=== PATIENT | male | born 1995 | race Caucasian/White ===

== ENCOUNTER 2017-01-16 13:13 | Observation (INO) | payer BC ==
[2017-01-16] MEDS ORDERED: ONDANSETRON 4 MG/2 ML VIAL ONE (13:22)
[2017-01-16] MEDS ORDERED: ONDANSETRON 4 MG/2 ML VIAL IVP ONE ×3 (13:25→16:25)
[2017-01-16] MEDS ORDERED: NS 1,000 ML IV ONE ×3 (13:25→16:23)
[2017-01-16 13:59] LABS: % IMMATURE GRANULYOCYTES 0.3 % (0.0-1.1); ABSOLUTE IMMATURE GRANULOCYTES 0.05 10^3/uL (0.00-0.10); ADD DIFF? NO; ADD MORPH? NO; ADD SCAN? NO; ATYPICAL LYMPHOCYTE FLAG 0 (0-99); FRAGMENT RBC FLAG 0 (0-99); HEMATOCRIT 50.4 % (40.0-51.0); HEMOGLOBIN 17.6 g/dL (13.7-17.5); LEFT SHIFT FLG 0 (0-99); LIPEMIA HEMOLYSIS FLAG 90 (0-99); MEAN CELL HEMOGLOBIN 32.4 pg (27.9-34.1); MEAN CELL HEMOGLOBIN CONCENTR. 34.9 g/dL (32.4-36.7); MEAN CELL VOLUME 92.6 fL (81.5-99.8); MEAN PLATELET VOLUME 10.1 fL (8.7-11.7); PLATELET CLUMPS FLAG 10 (0-99); PLATELET COUNT 246 10^3/uL (150-400); RED BLOOD CELL COUNT 5.44 10^6/uL (4.40-6.38); RED CELL DISTRIBUTION WIDTH 12.5 % (11.5-15.2)
[2017-01-16] MEDS ORDERED: PROMETHAZINE HCL 25 MG/ML INJ IVP ONE (14:01)
[2017-01-16 14:07] LABS: ALANINE AMINOTRANSFERASE 35 IU/L (21-72); ALBUMIN 4.9 g/dL (3.5-5.0); ALKALINE PHOSPHATASE 87 IU/L (38-126); ANION GAP 16 mEq/L (8-16); ASPARTATE AMINOTRANSFERASE 24 IU/L (17-59); BILIRUBIN,TOTAL 0.8 mg/dL (0.1-1.4); BILIRUBIN-CONJUGATED 0.4 mg/dL (0.0-0.5); BILIRUBIN-UNCONJUGATED 0.4 mg/dL (0.0-1.1); CALCIUM 10.3 mg/dL (8.5-10.4); CARBON DIOXIDE 26 mEq/l (22-31); CHLORIDE 102 mEq/L (97-110); GLOMERULAR FILTRATION RATE > 60; GLUCOSE 123 mg/dL (70-100); POTASSIUM 4.4 mEq/L (3.5-5.2); SODIUM 144 mEq/L (134-144); TOTAL PROTEIN 7.7 g/dL (6.3-8.2)
--- NOTE | 2017-01-16 14:11 | EDPHY ---
General Narrative: CHIEF COMPLAINT: Nausea vomiting diarrhea HISTORY OF PRESENT ILLNESS: Patient complains of sudden onset of nausea, vomiting diarrhea. This started when he awoke this morning at 7:30 a.m.. He feels as though he has food poisoning. He reports eating a meal 730 last night that was repaired outside the home. He said he felt well when he went to bed but awoke abruptly with the above. He has also had diarrhea. He thinks he has had 25 episode of vomiting and now just dry heaving. He has epigastric discomfort with this. He has no generalized abdominal pain. No fever. No sweating. No chest or back pain. No shortness of breath. No recent travel or camping. No stagnant water ingestion. No known sick contacts. No other associated complaints or modifying factors. REVIEW OF SYSTEMS: Ten systems reviewed and are negative unless otherwise noted in the HPI PCP: No General practitioner. Sees a psychiatrist Dr. Cancino SPECIALISTS: Psychiatrist Dr. Cancino PAST MEDICAL HISTORY: PTSD, anxiety PAST SURGICAL HISTORY: None SOCIAL HISTORY: Nonsmoker. Occasional alcohol. 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 Airway is patent Neck: Normal inspection, supple, non-tender Respiratory: Lungs are clear to auscultation Cardiovascular: Regular rate and rhythm. No murmur Gastrointestinal: Abdomen is soft and nontender. No tympany. No rigidity. No guarding or rebound tenderness. Back: non-tender, no bony abnormalities Neurological: A&O, nonfocal, normal gait Skin: Warm and dry, no rash Extremities: Nontender, no pedal edema Psychiatric: Mood and affect normal DIFFERENTIAL DIAGNOSES: Including but not limited to gastroenteritis, enteritis, gastritis, food-borne illness, hepatitis MDM: 2:00 p.m. Nausea vomiting diarrhea that started abruptly this morning. Patient feels that he may have food poisoning. He is in no acute distress. Vital signs are stable. IV fluid infusing. Laboratory studies are pending. I have ordered another dose of Zofran and 1 dose of promethazine. Re-evaluate 2:15 p.m. CBC reveals leukocytosis, possibly due to demargination from vomiting. Chemistries unremarkable. Continue to monitor in re-evaluated after IV fluid and antiemetics. 3:15 p.m. Patient re-evaluated. He has received IV fluid and 2 rounds of antiemetic. No vomiting here. He is feeling thirsty and asking for water to drink. He is starting to improve. He does not feel resolved but does feel better. I have re -examined his abdomen. Abdomen remains soft with mild generalized pain. No guarding. No distention. He does have some mild right lower quadrant pain but no guarding, rebound or obturator sign. I offered a CT scan for further evaluation with the patient has declined. He would like to drink water and go home if he is able to tolerate this. 4:15 p.m. Patient re-evaluated. I was notified by the RN that she re-evaluated him and his heart rate had increased from time of arrival. This is despite 2 L IV fluid. I re-evaluated him and he continues to feel nauseated but not vomiting. Heart rate is 105 beats per minute. It was 75 beats per minute in triage. I have ordered 1 additional L IV fluid another dose of Zofran. Patient continues to decline the CT scan and would like to go home. 5:08 p.m. Patient re-evaluated. I rechecked his heart rate is now 98 beats per minute. He said he is feeling better. He has tolerated intake of crackers without vomiting. He wants to be discharged home at this time. We discussed going home with Zofran and promethazine. We discussed 24 hr recheck if no improvement or sooner for any worsening. He voices understanding of this and agrees to return if he has no improvement in the next 24 hr. At that time he would require further IV fluid. He is comfortable this plan and discharged home stable condition. SUPERVISION: Patient was independently examined, but I discussed the case with my secondary supervising physician . - Objective Vital Signs: Initial Vital Signs Temperature (C) 97.5 F 01/16/17 13:20 Heart Rate 72 01/16/17 13:20 Respiratory Rate 18 01/16/17 13:20 Blood Pressure 137/77 H 01/16/17 13:20 O2 Sat (%) 98 01/16/17 13:20 O2 Delivery Mode Room Air Allergies/Adverse Reactions: Penicillins Allergy (Verified 01/16/17 14:25) Home Medications: Medication Instructions Recorded Lamictal 01/16/17 Ondansetron Odt [Zofran Odt 4 mg 4 mg PO Q6 PRN #12 tab 01/16/17 (*)] Paxil 01/16/17 Promethazine HCl [Phenergan 25mg 25 mg PO Q8 PRN #12 tab 01/16/17 (*)] Wellbutrin Xl 01/16/17 Laboratory Results: Laboratory Results 01/16/17 13:30 01/16/17 13:30 01/16/17 01/16/17 13:30 13:30 WBC 17.16 10^3/uL H 10^3/uL (3.80-9.50) RBC 5.44 10^6/uL 10^6/uL (4.40-6.38) Hgb 17.6 g/dL H g/dL (13.7-17.5) Hct 50.4 % % (40.0-51.0) MCV 92.6 fL fL (81.5-99.8) MCH 32.4 pg pg (27.9-34.1) MCHC 34.9 g/dL g/dL (32.4-36.7) RDW 12.5 % % (11.5-15.2) Plt Count 246 10^3/uL 10^3/uL (150-400) MPV 10.1 fL fL (8.7-11.7) Neut % (Auto) 92.5 % H % (39.3-74.2) Lymph % (Auto) 2.0 % L % (15.0-45.0) Stephens % (Auto) 4.7 % % (4.5-13.0) Eos % (Auto) 0.3 % L % (0.6-7.6) Baso % (Auto) 0.2 % L % (0.3-1.7) Nucleat RBC Rel Count 0.0 % % (0.0-0.2) Absolute Neuts (auto) 15.87 10^3/uL H 10^3/uL (1.70-6.50) Absolute Lymphs (auto) 0.35 10^3/uL L 10^3/uL (1.00-3.00) Absolute Monos (auto) 0.80 10^3/uL 10^3/uL (0.30-0.80) Absolute Eos (auto) 0.05 10^3/uL 10^3/uL (0.03-0.40) Absolute Basos (auto) 0.04 10^3/uL 10^3/uL (0.02-0.10) Absolute Nucleated RBC 0.00 10^3/uL 10^3/uL (0-0.01) Immature Gran % 0.3 % % (0.0-1.1) Immature Gran # 0.05 10^3/uL 10^3/uL (0.00-0.10) Sodium 144 mEq/L mEq/L (134-144) Potassium 4.4 mEq/L mEq/L (3.5-5.2) Chloride 102 mEq/L mEq/L (97-110) Carbon Dioxide 26 mEq/l mEq/l (22-31) Anion Gap 16 mEq/L mEq/L (8-16) BUN 26 mg/dL H mg/dL (7-23) Creatinine 1.0 mg/dL mg/dL (0.7-1.3) Estimated GFR > 60 Glucose 123 mg/dL H mg/dL (70-100) Calcium 10.3 mg/dL mg/dL (8.5-10.4) Total Bilirubin 0.8 mg/dL mg/dL (0.1-1.4) Conjugated Bilirubin 0.4 mg/dL mg/dL (0.0-0.5) Unconjugated Bilirubin 0.4 mg/dL mg/dL (0.0-1.1) AST 24 IU/L IU/L (17-59) ALT 35 IU/L IU/L (21-72) Alkaline Phosphatase 87 IU/L IU/L (38-126) Total Protein 7.7 g/dL g/dL (6.3-8.2) Albumin 4.9 g/dL g/dL (3.5-5.0) Lipase 55 IU/L IU/L (23-300) Medications Given: Discontinued Medications Sodium Chloride (Ns) 1,000 mls @ 0 mls/hr IV ONCE ONE PRN Reason: Wide Open Stop: 01/16/17 13:26 Last Admin: 01/16/17 13:37 Dose: 1,000 mls Sodium Chloride (Ns) 1,000 mls @ 0 mls/hr IV ONCE ONE PRN Reason: Wide Open Stop: 01/16/17 13:41 Last Admin: 01/16/17 13:41 Dose: 1,000 mls Sodium Chloride (Ns) 1,000 mls @ 0 mls/hr IV ONCE ONE PRN Reason: Wide Open Stop: 01/16/17 16:24 Last Admin: 01/16/17 16:27 Dose: 1,000 mls Ondansetron HCl (Zofran) 4 mg IVP EDNOW ONE Stop: 01/16/17 13:26 Last Admin: 01/16/17 13:37 Dose: 4 mg Ondansetron HCl (Zofran) 4 mg IVP EDNOW ONE Stop: 01/16/17 14:02 Last Admin: 01/16/17 14:10 Dose: 4 mg Ondansetron HCl (Zofran) 4 mg IVP EDNOW ONE Stop: 01/16/17 16:26 Last Admin: 01/16/17 16:27 Dose: 4 mg Promethazine HCl (Phenergan) 12.5 mg IVP ONCE ONE Stop: 01/16/17 14:02 Last Admin: 01/16/17 14:10 Dose: 12.5 mg Departure - Departure Disposition: Home, Routine, Self-Care Clinical Impression: Acute vomiting, Acute diarrhea Condition: Good Instructions: Gastroenteritis (ED), Acute Nausea and Vomiting (ED) Additional Instructions: 1. Increase intake slowly as tolerated 2. Nausea medications as discussed as needed 3. Contact her primary care physician or the on-call primary care physician provided 4. ED precautions for any worsening symptoms, right lower quadrant abdominal pain, fever Referrals: Katja Lange MD [Medical Doctor] - As per Instructions Stand Alone Forms: Work Excuse Prescriptions: Ondansetron Odt [Zofran Odt 4 mg (*)] 4 mg PO Q6 PRN #12 tab PRN Reason: Nausea/Vomiting, Use 1st Promethazine HCl [Phenergan 25mg (*)] 25 mg PO Q8 PRN #12 tab PRN Reason: Nausea/Vomiting, Use 1st
[2017-01-16] MEDS ORDERED: ONDANSETRON 4 MG/2 ML VIAL IVP PRN (17:42)
[2017-01-16] MEDS ORDERED: ONDANSETRON DISINTEGRATING 4 MG TAB PO PRN (17:42)
[2017-01-16] MEDS ORDERED: ACETAMINOPHEN 325 MG TAB PO PRN (17:42)
--- NOTE | 2017-01-16 19:44 | GHP ---
[f rep st] HISTORY AND PHYSICAL DATE OF ADMISSION: 01/16/2017 CHIEF COMPLAINT: Intractable nausea, vomiting, and diarrhea. HISTORY OF PRESENT ILLNESS: A 21-year-old male with history of anxiety and PTSD , presenting with intractable nausea, vomiting, and diarrhea that started abruptly this morning. He says he was in a normal state of health yesterday without fevers, chills, or sweats. He ate rotisserie chicken yesterday afternoon and went out to dinner and had tomato soup and a grilled cheese. He thinks he had food poisoning. c/o chills today and abdominal pain secondary to retching. No cough, shortness of breath, or dysuria. No myalgias. No neck stiffness. No headaches. He was treated in the emergency department with antiemetics; however, he continued to have persistent nausea and vomiting. REVIEW OF SYSTEMS: I completed a 10-point review of systems and is negative except as noted in HPI. PAST MEDICAL HISTORY: Anxiety and PTSD. PAST SURGICAL HISTORY: None. FAMILY HISTORY: No cancers. SOCIAL HISTORY: He lives here in [place]. He works as a fly freshman in a restaurant. Occasional marijuana. A recovering heroin user, last 2 years ago. No alcohol or tobacco. ALLERGIES: Penicillin. HOME MEDICATIONS: Wellbutrin, Paxil, Lamictal, promethazine, and Zofran, as needed. PHYSICAL EXAMINATION: VITAL SIGNS: Temperature 36.9, blood pressure 152/74, heart rate 97-100, and 98% on room air. GENERAL: Mildly diaphoretic, lying in bed in no acute distress. HEENT: PERRLA. Mildly dry mucous membranes. CARDIOVASCULAR: Regular rate and rhythm. No murmurs, gallops, or rubs. LUNGS : Clear to auscultation bilaterally. ABDOMEN: Soft, nondistended. Minimal palpation. No rebound, guarding. Positive bowel sounds. : No suprapubic tenderness. MUSCULOSKELETAL: 5/5 upper and lower extremity strength. NEUROLOGIC: Cranial nerves 2-12 intact. PSYCHIATRIC: Alert and oriented x3. LABORATORY DATA: WBC is 17.6, hemoglobin 17, hematocrit 50, platelets 246. Sodium is 144, potassium 4.4, chloride 102, anion gap 16, BUN 26, creatinine 1, glucose 123. LFTs are within normal. Lipase is 55. ASSESSMENT AND PLAN: 1. Intractable nausea, vomiting, and diarrhea: Suspect this is food-borne illness, given abrupt onset. He was in his normal state of health today. Abdominal pain developed after excessive retching. GI panel pending.. Supportive care with intravenous fluids and antiemetics. Clear diet, advance as tolerated. 2. Leukocytosis: Likely secondary to stress, inflammation, and possible gastroenteritis. He denies other infectious symptoms. We will repeat in the morning after hydration. 3. Diet: Clears. Advance as tolerated. 4. DVT prophylaxis. Low risk. DISPOSITION: The patient warrants observation and admission, given persistent nausea and vomiting, warranting intravenous fluids and antiemetics. /[id number]/MODL MTDD
[2017-01-16] MEDS: LR 1,000 ML IV SCH (20:20)
[2017-01-17 05:56] LABS: HEMATOCRIT 42.4 % (40.0-51.0); HEMOGLOBIN 15.3 g/dL (13.7-17.5); MEAN CELL HEMOGLOBIN 33.3 pg (27.9-34.1); MEAN CELL HEMOGLOBIN CONCENTR. 36.1 g/dL (32.4-36.7); MEAN CELL VOLUME 92.4 fL (81.5-99.8); RED BLOOD CELL COUNT 4.59 10^6/uL (4.40-6.38); RED CELL DISTRIBUTION WIDTH 12.6 % (11.5-15.2)
[2017-01-17 06:13] LABS: ANION GAP 10 mEq/L (8-16); CALCIUM 8.4 mg/dL (8.5-10.4); CARBON DIOXIDE 25 mEq/l (22-31); CHLORIDE 104 mEq/L (97-110); CREATININE 0.9 mg/dL (0.7-1.3); GLOMERULAR FILTRATION RATE > 60; GLUCOSE 82 mg/dL (70-100); POTASSIUM 3.6 mEq/L (3.5-5.2); SODIUM 139 mEq/L (134-144)
[2017-01-17] MEDS: LR 1,000 ML IV SCH (06:37)
[2017-01-17] MEDS ORDERED: PARoxetine HCL 10 MG TAB PO SCH (09:00)
[2017-01-17] MEDS ORDERED: buPROPion 75 MG TAB PO SCH (09:00)
[2017-01-17 11:46] VITALS: BP 143/78; PULSE 70; RESP 18; TEMP 97.8; O2SAT 95
[2017-01-17] MEDS ORDERED: lamoTRIgine 100 MG TAB PO SCH (12:00)
[2017-01-17] MEDS ORDERED: NON-FORMULARY NEW DRUG (Gabapentin [Gabapentin] 600 MG) PO SCH (12:00)
[2017-01-17] MEDS ORDERED: clonazePAM 0.5 MG TAB PO PRN ×2 (12:00→17:00)
--- NOTE | 2017-01-17 12:14 | HOSPPROG ---
Hospitalist Progress Note Assessment/Plan: patient is an 21 y/o who presented to the ER with intractable nausea, vomiting and diarrhea. Today is my first encounter with the patient, chart reviewed. *intractable nausea and vomiting w diarrhea resolved tolerating cl liquids *Leukocytosis resolved *anxiety w PTSD has a very supportive psychiatrist he sees hospitals cause high anxiety for Alejandro/ would like to leave soon *Plan: dc home Subjective: alejandro has no c/o abdominal pain-says he ate a popsicle. The hospital stay is making him very anxious. Objective: Vital Signs Temp Pulse Resp BP Pulse Ox 36.6 C 70 18 143/78 H 95 01/17/17 11:46 01/17/17 11:46 01/17/17 11:46 01/17/17 11:46 01/17/17 11:46 Laboratory Results 01/17/17 05:10 01/17/17 05:30 01/16/17 01/17/17 01/18/17 05:59 05:59 05:59 Intake Total 4350 Output Total 700 Balance 3650 - Physical Exam Constitutional: appears nourished, not in pain Eyes: PERRL Ears, Nose, Mouth, Throat: hearing normal Cardiovascular: regular rate and rhythym Respiratory: no respiratory distress Gastrointestinal: normoactive bowel sounds, no palpable masses Skin: warm Musculoskeletal: full muscle strength Neurologic: AAOx3 Psychiatric: anxious ICD10 Worksheet Patient Problems: Problems Problem Status Onset Acute diarrhea Acute Acute vomiting Acute
--- NOTE | 2017-01-17 12:47 | GDS ---
[f rep st] DISCHARGE SUMMARY DISCHARGE DIAGNOSES: 1. Intractable nausea, vomiting, and diarrhea. 2. Leukocytosis. 3. Anxiety with posttraumatic stress disorder. HISTORY OF PRESENT ILLNESS: Briefly, the patient is a 21-year-old male with a history of anxiety, PTSD. He presented the emergency room with intractable nausea, vomiting, and diarrhea, that abruptly started. He describes this occurring after he ate rotisserie chicken in the afternoon. Went out to dinner , had tomato soup and a grilled cheese. He thinks he had food poisoning. Today , during my interview, he says he is tolerating clear liquids. He is anxious to get out of the hospital because the hospital is increasing his anxiety. He will be discharged home and further followed up with the psychiatrist. HOSPITAL COURSE: 1. Intractable nausea, vomiting, and diarrhea, resolved. He is tolerating clear liquids. 2. Leukocytosis, resolved. 3. Anxiety, PTSD. He has a supportive psychiatrist whom he sees. The hospital is causing increased stress. DISCHARGE CONDITION: Stable. Blood pressure is 143/78, heart rate is 70, respiratory rate is 18, O2 sats on room air 95%, temperature is 36.6 Celsius. MEDICATIONS AT DISCHARGE: Please see EMR. DISCHARGE INSTRUCTIONS: 1. Take in clear liquids and advance his diet slowly. 2. If he notices any worsening abdominal pain, return to the ER. 3. Further followup with his primary care provider. /[id number]/MODL MTDD
--- NOTE | 2017-01-17 15:30 | ASDISCHSUM ---
Discharge Information Plan Status:Home with No Needs Medically Cleared to Leave:01/16/2017 Discharge Date:01/17/2017 01:30 PM CM D/C Disposition: ADT D/C Disposition:Home, Routine, Self-Care Projected Discharge Date:01/17/2017 12:00 AM Transportation at D/C: Discharge Delay Reason: Follow-Up Date:01/17/2017 12:00 AM Discharge Slot: Final Diagnosis: Placement Information Patient Contact Information Contact Name:JOHNNIE Relationship:Sister Address: Work Phone: City: [facility] Phone: State/[place] Code: Email: Financial Information Financial Class:O and PPO Plans Primary Plan Desc: OUT OF STATE PPO Primary Plan Number:[id number] Secondary Plan Desc: Secondary Plan Number: Assessment Information Intervention Information
[2017-01-17] MEDS ORDERED: GABAPENTIN 300 MG CAP PO SCH (16:00)
[2017-01-17] MEDS ORDERED: OLANZapine 2.5 MG TAB PO SCH (21:00)
== END 2017-01-17 13:30 | disposition home or self-care (01) ==
LOC: F3E 18:34
PROVIDERS: ADMIT Internal Medicine; ATTEND Internal Medicine
DX: R11.2 Nausea with vomiting, unspecified (principal); R19.7 Diarrhea, unspecified; F41.9 Anxiety disorder, unspecified; F43.10 Post-traumatic stress disorder, unspecified
CPT/HCPCS: G0378 ×2; 96374; J2405; J2550